=== PATIENT | male | born 1945 | race Caucasian/White ===

== ENCOUNTER 2020-05-01 14:56 | Outpatient (CLI) | payer MEDICARE, OTHER | END 2020-05-01 23:59 | disposition home or self-care (01) | LOC: LAB.WCP 14:56 | PROVIDERS: ATTEND Family Medicine | DX: N39.0 Urinary tract infection, site not specified (principal) | CPT/HCPCS: 87086; 87181 ==

== ENCOUNTER 2021-03-07 14:41 | Outpatient (CLI) | payer MEDICARE, OTHER | END 2021-03-07 14:42 | disposition short-term general hospital (02) | LOC: EMS 14:41 | DX: R55 Syncope and collapse (principal); R53.1 Weakness; R53.83 Other fatigue; R00.0 Tachycardia, unspecified | CPT/HCPCS: A0425; A0427 ==

== ENCOUNTER 2021-03-19 12:46 | Outpatient (CLI) | payer MEDICARE, OTHER ==
[2021-03-19 13:17] LABS: CALCIUM 9.5 mg/dL (8.5-10.3); CREATININE 1.1 mg/dL (0.6-1.2); POTASSIUM 3.7 mmol/L (3.5-5.0)
== END 2021-03-19 12:47 | disposition home or self-care (01) ==
LOC: LAB 12:46
DX: I48.20 Chronic atrial fibrillation, unspecified (principal); I11.0 Hypertensive heart disease with heart failure; I50.32 Chronic diastolic (congestive) heart failure
CPT/HCPCS: 36415; 80048; 83880

== ENCOUNTER 2021-05-02 11:55 | Emergency (ER) | payer MEDICARE, OTHER ==
[2021-05-02 12:11] VITALS: BP 128/62
== END 2021-05-02 12:52 | disposition left against medical advice (07) ==
LOC: ED 11:55
DX: Z53.21 Procedure and treatment not carried out due to patient leaving prior to being seen by health care provider (principal)

== ENCOUNTER 2022-11-03 12:26 | Emergency (ER) | payer MEDICARE, OTHER ==
--- NOTE | 2022-11-03 13:02 | ED Physician Documentation ---
PD HPI HEAD INJURY - Stated complaint Stated Complaint: GLF - Chief complaint Chief Complaint: Trauma Hd/Nk - History obtained from History obtained from: Patient, Family - Additional information Additional information: 77-year-old gentleman with Watchman device, ergo not anticoagulated was walking in his driveway today and slipped and fell injuring his left hand and forehead. No loss of consciousness. Mild headache. PD PAST MEDICAL HISTORY - Present Medications Home Medications: Ambulatory Orders Medication Instructions Recorded Confirmed Aspirin [Prentiss Aspirin] 81 mg PO DAILY 05/02/21 05/02/21 Chlorthalidone 12.5 mg PO DAILY 05/02/21 05/02/21 Losartan [Cozaar] 100 mg PO DAILY 05/02/21 05/02/21 Metoprolol Succinate [Toprol Xl] 25 mg PO HS 05/02/21 05/02/21 Metoprolol Succinate [Toprol Xl] 50 mg PO DAILY 05/02/21 05/02/21 Omeprazole Magnesium 20 mg PO DAILY 05/02/21 05/02/21 - Allergies Allergies/Adverse Reactions: Allergies Allergy/AdvReac Type Severity Reaction Status Date / Time No Known Drug Allergies Allergy Verified 11/03/22 12:28 PD ED PE NORMAL - Vitals Vital signs reviewed: Yes - General General: Alert and oriented X 3, No acute distress - HEENT HEENT: PERRL, EOMI, Other (3 cm shallow laceration just above the left eyebrow with an assortment of abrasions and bruising around the upper face but no facial bony tenderness.) - Neck Neck: Supple, no meningeal sign, No bony TTP - Derm Derm: Normal color, Warm and dry - Extremities Extremities: Other (Tenderness around the fifth metacarpal of the left hand but painless range of motion of the left pinky. No deformity.) - Neuro Neuro: Alert and oriented X 3, Normal speech Eye Opening: Spontaneous Motor: Obeys Commands Verbal: Oriented GCS Score: 15 Results - Vitals Vitals: Vital Signs - 24 hr 11/03/22 12:28 Temperature 36.8 C Heart Rate 62 Respiratory 16 Rate Blood Pressure 150/60 H O2 Saturation 100 Oxygen O2 Source Room air - Rads (name of study) Three-view x-ray of the right hand is negative for fracture. Relevant Findings:: Final report received, EMP independent interpretation of test CT Head- see mdm Relevant Findings:: Final report received, EMP independent interpretation of test Procedures - Laceration (location) L forehead Length in cm: 3 Wound type: Curved, Superficial Wound preparation: Irrigated copiously NS Skin layer closure: Dermabond Other: Tetanus UTD PD Medical Decision Making - ED course ED course: 77-year-old gentleman with a ground-level fall and a laceration above the left eye which was closed Dermabond and also some facial abrasions but no clinical evidence of facial fracture. 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 At that poin t he had been here for quite some time, about 4 hours, and I discussed this finding with the patient and his very supportive who are at the bedside. The radiologist recommended repeat CT scanning in 6 hours. At this point he is asymptomatic. Has no headache, no nausea and is feeling just fine. As such she was given close return precautions as opposed to a mandatory repeat CT and patient and are comfortable with this. Departure - Departure Disposition: 01 Home, Self Care Clinical Impression: Ground-level fall, Head injury Contusion of left hand Qualifiers: Encounter type: initial encounter Qualified Code(s): S60.222A - Contusion of left hand, initial encounter Facial abrasion Qualifiers: Encounter type: initial encounter Qualified Code(s): S00.81XA - Abrasion of other part of head, initial encounter Facial laceration Qualifiers: Encounter type: initial encounter Qualified Code(s): S01.81XA - Laceration without foreign body of other part of head, initial encounter Condition: Good Record reviewed to determine appropriate education?: Yes Instructions: ED Head Injury Closed, ED Laceration Facial Skin Glue Comments: Note for your records your last tetanus shot was December 20, 2014 so you are up-to-date for another couple of years. As discussed, there was an abnormality on the CAT scan, consistent with a "hygroma" which is usually inside sales representative of old trauma. Given that you are asymptomatic at this point without headache or nausea, I think watchful waiting is fine, but you should definitely return if you were to develop any headache at all or any vomiting. Call your doctor to arrange a follow-up appointment, make the next available appointment. In the interim, return anytime if worse or if new symptoms develop. Forms: PCP List
[2022-11-03] MEDS ORDERED: ACETAMINOPHEN 500 MG TABLET PO STA (13:07)
--- NOTE | 2022-11-03 13:43 | XRAY Report ---
PROCEDURE: Hand 3 View LT INDICATIONS: hand inj TECHNIQUE: 3 views of the hand(s) acquired. COMPARISON: None. FINDINGS: Bones: No visualized fracture. No suspicious bony lesions. 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 Degenerative changes are also present at the IP joints most severe at the second and third DIP joints. No distinct erosions. Soft tissues: No suspicious soft tissue calcifications or masses. IMPRESSION: No visualized acute fracture or dislocation. However, occult injury cannot be excluded. Recommend leeroy rt interval imaging follow-up in 7-10 days as clinically indicated for additional evaluation. Reviewed by: Ninoska Laird MD on 11/03/2022 1:42 PM PDT Approved by: Ninoska Laird MD on 11/03/2022 1:42 PM PDT Station ID: [id number]
--- NOTE | 2022-11-03 15:59 | CT Report ---
PROCEDURE: HEAD WO INDICATIONS: head inj TECHNIQUE: Noncontrast 4.5 mm thick angled axial sections acquired from the foramen magnum to the vertex. For r adiation dose reduction, the following was used: automated exposure control, adjustment of mA and/or kV according to patient size. COMPARISON: None. FINDINGS: Image quality: Excellent. The ventricular system and cortical sulci demonstrate atrophy, consistent for patient's stated age. There are areas of hypodensity in the periventricular and subcortical white matter. There there is a symmetric prominence of low attenuation right holohemispheric subdural fluid collection. No priors ar e available for comparison. No acute hemorrhage, mass lesion or midline shift. Brainstem is unremark able. Left frontal scalp hematoma. Globes are symmetrical. Sinuses are aerated. Osseous structures are intact. IMPRESSION: Asymmetric prominence of the right holohemispheric low-attenuation subdural fluid collection. While t his could represent asymmetric hygroma, no priors are available for comparison. Given presence of rec ent trauma, [address] follow-up is recommended to document stability and lack of hemorrhagic acute co nversion. Reviewed by: Ninoska Laird MD on 11/03/2022 3:58 PM PDT Approved by: Ninoska Laird MD on 11/03/2022 3:58 PM PDT Station ID: [id number]
[2022-11-03 16:32] VITALS: BP 153/51; O2SAT 16
== END 2022-11-03 16:51 | disposition home or self-care (01) ==
LOC: ED 12:26
DX: S09.90XA Unspecified injury of head, initial encounter (principal); S01.81XA Laceration without foreign body of other part of head, initial encounter; S60.222A Contusion of left hand, initial encounter; W01.0XXA Fall on same level from slipping, tripping and stumbling without subsequent striking against object, initial encounter; Y93.01 Activity, walking, marching and hiking; Y92.008 Other place in unspecified non-institutional (private) residence as the place of occurrence of the external cause; Z79.82 Long term (current) use of aspirin
CPT/HCPCS: 12013; 99283; 99284

== ENCOUNTER 2023-03-26 15:10 | Outpatient (CLI) | payer MEDICARE, OTHER | END 2023-03-26 15:11 | disposition home or self-care (01) | LOC: LAB 15:10 | DX: D64.9 Anemia, unspecified (principal) | CPT/HCPCS: 36415; 82728; 83540; 84466 ==

== ENCOUNTER 2023-04-07 13:58 | Outpatient (CLI) | payer MEDICARE, OTHER | END 2023-04-07 13:59 | disposition home or self-care (01) | LOC: LAB 13:58 | PROVIDERS: ATTEND Family Medicine | DX: D64.9 Anemia, unspecified (principal) | CPT/HCPCS: 36415; 82607; 82746 ==

== ENCOUNTER 2023-05-18 13:23 | Outpatient (CLI) | payer MEDICARE, OTHER ==
[2023-05-18 13:37] LABS: BASOPHILS % (AUTO) 0.6 %; EOSINOPHILS # (AUTO) 0.2 10^3/uL (0.0-0.7); HCT - HEMATOCRIT 40.7 % (42.0-52.0); HGB - HEMOGLOBIN 13.6 g/dL (14.0-18.0); LYMPHOCYTES # (AUTO) 1.6 10^3/uL (1.5-3.5); MEAN CORPUSCULAR HGB CONC 33.4 g/dL (32.0-36.0); MEAN CORPUSCULAR VOLUME 95.8 fL (80.0-94.0); MEAN PLATELET VOLUME 10.4 fL (7.4-11.4); MONOCYTES # (AUTO) 0.5 10^3/uL (0.0-1.0); MONOCYTES % (AUTO) 7.9 %; NEUTROPHILS # (AUTO) 4.1 10^3/uL (1.5-6.6); NEUTROPHILS % (AUTO) 63.3 %; PLT - PLATELET COUNT 182 10^3/uL (130-450); RED BLOOD COUNT 4.25 10^6/uL (4.70-6.10); RED CELL DISTRIBUTION WIDTH 12.7 % (12.0-15.0); WHITE BLOOD COUNT 6.4 x10^3/uL (4.8-10.8)
== END 2023-05-18 13:24 | disposition home or self-care (01) ==
LOC: LAB 13:23
PROVIDERS: ATTEND Student in an Organized Health Care Education/Training Program
DX: D64.9 Anemia, unspecified (principal)
CPT/HCPCS: 36415; 85025